=== PATIENT | female | born 1980 | race American Indian/Alaskan Native ===

== ENCOUNTER 2017-04-07 02:41 | Emergency (ER) | payer MEDICAID ==
[2017-04-07 02:58] VITALS: BP 124/74
--- NOTE | 2017-04-07 04:51 | XRay Report ---
FINAL REPORT PROCEDURE: XR SPINE CERVICAL 2-3V TECHNIQUE: Cervical spine radiographs, AP and lateral projections. CPT 33361 HISTORY: neck pain COMPARISON: No prior studies are available for comparison. FINDINGS: Prevertebral soft tissues: Normal. Alignment: Normal. Vertebral body heights/Disk spaces: There is mild loss of disc height at C5-C6 and C6-C7.. Fracture(s): None. Facets: Normal. Bone mineralization: Normal. IMPRESSION: There are no fractures or malalignments. There is degenerative disc change at C5-C6 and C6-C7. Prevertebral soft tissues are normal in thickness.
[2017-04-07] MEDS ORDERED: TORADOL IM ONE (04:55)
--- NOTE | 2017-04-07 04:55 | Emergency Department Report ---
HPI - General Chief Complaint: Neck Pain/Injury Time Seen by Provider: 04/07/17 04:13 - HPI HPI: Patient is a 37-year-old female with no prior medical history who presents to ED complaining of right shoulder back pain 1 week. Patient states pain is burning tingling in nature. Patient describes pain as localized to the right shoulder that radiates down her arm. Patient denies any injuries or trauma to the shoulder. Patient states she had no trauma. She denies fever/chills/nausea /vomiting/abdominal pain/chest pain/shortness of breath ED Past Medical Hx - Past Medical History Hx Arthritis: Yes (Rheumatoid) Additional medical history: club foot, scoliosis - Surgical History Additional Surgical History: foot and back surgery - Social History Smoking Status: Current Every Day Smoker Substance Use Type: None - Medications Home Medications: Home Medications Medication Instructions Recorded Confirmed Last Taken Type Albuterol Sulfate [Ventolin HFA] 2 puff IH Q4H PRN #1 hfa.aer.ad 07/31/13 Unknown Rx Azithromycin [Zithromax Z-NANCY] 250 mg PO DAILY #6 tablet 07/31/13 Unknown Rx Guaifenesin/Codeine Phosphate 5 ml PO Q6H PRN #8 oz 07/31/13 Unknown Rx [Cheratussin AC Syrup] Ondansetron [Zofran Odt] 4 mg PO Q6H PRN #10 tab.rapdis 07/31/13 Unknown Rx Acetaminophen/Codeine [Tylenol 1 tab PO Q6H PRN #10 tab 04/07/17 Unknown Rx /Codeine # 3 tab] Cyclobenzaprine [Flexeril] 10 mg PO QHS PRN #20 tablet 04/07/17 Unknown Rx Naproxen [Naprosyn] 500 mg PO BID #30 tablet 04/07/17 Unknown Rx ED Review of Systems ROS: Stated complaint: RIGHT ARM,SHOULDER,NECK,BACK PAIN Other details as noted in HPI Constitutional: denies: chills, fever Eyes: denies: eye pain, eye discharge, vision change ENT: denies: ear pain, throat pain Respiratory: denies: cough, shortness of breath, wheezing Cardiovascular: denies: chest pain, palpitations Endocrine: no symptoms reported Gastrointestinal: denies: abdominal pain, nausea, diarrhea Genitourinary: denies: urgency, dysuria, discharge Musculoskeletal: myalgia. denies: back pain, joint swelling, arthralgia Skin: denies: rash, lesions, pruritus Neurological: denies: headache, weakness, paresthesias Psychiatric: denies: anxiety, depression Hematological/Lymphatic: denies: easy bleeding, easy bruising Physical Exam - Physical Exam Vital Signs: Vital Signs 04/07/17 02:54 Temperature 98.4 F Pulse Rate 72 Respiratory 18 Rate Blood Pressure 124/74 O2 Sat by Pulse 100 Oximetry Physical Exam: GENERAL: Alert and oriented x3, no apparent distress, Normal Gait, atraumatic. HEAD: Head is normocephalic and a-traumatic. NECK: Supple. Non edematous, No lymphadenopathy or thyromegaly. No C-spine tenderness LUNGS: Symetrical with respiration, No wheezing, no rales or crackles, CTAB. HEART: S1, S2 present, regular rate and rhythm without murmur, no rubs, no gallops. Non tender to palpation BACK: Full range of motion, no spinal tenderness, nontender to palpation. EXTREMITIES/MUSCULOSKELETAL: No cyanosis, clubbing, rash, lesions or edema. Full ROM bilaterally. UE/LE Pulses 2+ bilaterally. UE 5+ strength bilaterally, right trapezius muscles tended to palpation. No bruising, no swelling, no joint deformity seen. NEUROLOGIC: The patient is cooperative with no focal neurologic deficits. Normal speech. Normal sensation in bilateral upper and lower extremities, No loss of sensation, SKIN: Warm and dry, No lesions, No ulceration or induration present. ED Course Vital Signs 04/07/17 02:54 Temperature 98.4 F Pulse Rate 72 Respiratory 18 Rate Blood Pressure 124/74 O2 Sat by Pulse 100 Oximetry ED Medical Decision Making - Radiology Data Radiology results: report reviewed, image reviewed FINDINGS: Prevertebral soft tissues: Normal. Alignment: Normal. Vertebral body heights/Disk spaces: There is mild loss of disc height at C5-C6 and C6-C7.. Fracture(s): None. Facets: Normal. Bone mineralization: Normal. IMPRESSION: There are no fractures or malalignments. There is degenerative disc change at C5-C6 and C6-C7. Prevertebral soft tissues are normal in thickness. Transcribed By: CO Dictated By: LIVAN FERGUSON MD Electronically Authenticated By: LIVAN FERGUSON MD Signed Date/Time: 04/07/1749 FINAL REPORT PROCEDURE: XR SHOULDER 2+V RT TECHNIQUE: Right shoulder radiographs including AP views in internal and external rotation and abduction. CPT 05041 HISTORY: pain R shoulder COMPARISON: No prior studies are available for comparison. FINDINGS: Fracture (s) and/or Dislocation(s): None . Joint space(s): Normal . Soft tissues: Normal . Bone mineralization: Normal . Foreign bodies: None . IMPRESSION: Normal Examination Transcribed By: CO Dictated By: LIVAN FERGUSON MD Electronically Authenticated By: LIVAN FERGUSON MD Signed Date/Time: 04/07/1753 - Medical Decision Making 36-year-old female presents to ED with right shoulder pain ED course: Patient received Toradol and prednisone in ED. Cervical CT, showed x-ray ordered. No acute findings. I discussed his findings with the patient. Vital signs are normal patient is in no acute distress Discussed with patient follow-up with primary care physician. Discussed the patient and take medications as prescribed. Patient has no neurological deficit. Patient is alert and oriented 3 and understands all instructions given. Discussed drowsiness effect of Flexeril makes her drowsy and not to operate machinery while taking flexeril Critical care attestation.: If time is entered above; I have spent that time in minutes in the direct care of this critically ill patient, excluding procedure time. ED Disposition Clinical Impression: Cervical radiculopathy Shoulder pain, right Qualifiers: Chronicity: chronic Qualified Code(s): M25.511 - Pain in right shoulder; G89.29 - Other chronic pain; G89.29 - Other chronic pain Disposition: - TO HOME OR SELFCARE Is pt being admited?: No Does the pt Need Aspirin: No Condition: Stable Instructions: Arthralgia (ED), Tendinitis (ED), Cervical Radiculopathy (ED), Heat Pack Application (ED) Additional Instructions: Make sure to follow up with the primary care physician as discussed. Take all your medications as you've been prescribed. If you have any worsening symptoms or develop new symptoms please return to ED immediately. Prescriptions: Cyclobenzaprine [Flexeril] 10 mg PO QHS PRN #20 tablet PRN Reason: Muscle Spasm Acetaminophen/Codeine [Tylenol /Codeine # 3 tab] 1 tab PO Q6H PRN #10 tab PRN Reason: Pain Naproxen [Naprosyn] 500 mg PO BID #30 tablet Referrals: LETI MAC MD [Primary Care Provider] - 3-5 Days JAYSHREE VEGA MD [Staff Physician] - 3-5 Days [facility] [Outside] - 3-5 Days [facility] [Outside] - 3-5 Days Forms: Work/School Release Form(ED) Time of Disposition: 05:20
[2017-04-07] MEDS ORDERED: DELTASONE PO ONE (04:57)
[2017-04-07] MEDS ORDERED: TORADOL ONE (05:08)
== END 2017-04-07 05:31 | disposition home or self-care (01) ==
LOC: ED 02:41
DX: M54.12 Radiculopathy, cervical region (principal); M06.9 Rheumatoid arthritis, unspecified; F17.200 Nicotine dependence, unspecified, uncomplicated; M25.511 Pain in right shoulder; G89.29 Other chronic pain
CPT/HCPCS: 72040; 73030; 96372; 99283; J1885; J7512

== ENCOUNTER 2018-03-18 11:02 | Emergency (ER) | payer MEDICAID ==
[2018-03-18] MEDS ORDERED: SOLU-Medrol IV ONE (11:25)
[2018-03-18] MEDS ORDERED: BENADRYL IV ONE (11:25)
[2018-03-18] MEDS ORDERED: PEPCID IV ONE (11:25)
--- NOTE | 2018-03-18 11:27 | Emergency Department Report ---
ED Allergic Reaction HPI - General Chief complaint: Allergic Reaction Stated complaint: ALLERGIC REACTION Time Seen by Provider: 03/18/18 11:17 Source: patient Mode of arrival: Ambulatory Limitations: No Limitations - History of Present Illness Initial Comments: 38-year-old female presents to ED with complaint of allergic reaction. The patient has past history of shrimp allergy, reports the patient last night and felt fine, so she decided to eat some this morning also. Patient states she began having swelling around her eyes and facial burning and itching. Denies shortness of breath or wheezing, or sensation of throat closing. Also denies rash. MD Complaint: allergic reaction -: This morning Exposure: food Symptoms: itching, facial swelling. denies: lip swelling, difficulty swallowing, difficulty breathing, orolingual swelling, hoarseness Severity: mild Treatment Prior to Arrival: none - Related Data Previous Rx's Medication Instructions Recorded Last Taken Type Albuterol Sulfate [Ventolin HFA] 2 puff IH Q4H PRN #1 hfa.aer.ad 07/31/13 Unknown Rx Azithromycin [Zithromax Z-NANCY] 250 mg PO DAILY #6 tablet 07/31/13 Unknown Rx Guaifenesin/Codeine Phosphate 5 ml PO Q6H PRN #8 oz 07/31/13 Unknown Rx [Cheratussin AC Syrup] Ondansetron [Zofran Odt] 4 mg PO Q6H PRN #10 tab.rapdis 07/31/13 Unknown Rx Acetaminophen/Codeine [Tylenol 1 tab PO Q6H PRN #10 tab 04/07/17 Unknown Rx /Codeine # 3 tab] Cyclobenzaprine [Flexeril] 10 mg PO QHS PRN #20 tablet 04/07/17 Unknown Rx Naproxen [Naprosyn] 500 mg PO BID #30 tablet 04/07/17 Unknown Rx HYDROcodone/APAP 5-325 [[place] 1 each PO Q4HR PRN #12 tablet 02/18/18 Unknown Rx 5/325] Ibuprofen [Motrin] 600 mg PO Q8H PRN #20 tablet 02/18/18 Unknown Rx predniSONE [Prednisone] 50 mg PO DAILY #5 tablet 03/18/18 Unknown Rx Allergies Allergy/AdvReac Type Severity Reaction Status Date / Time shrimp Allergy Angioedema Verified 03/18/18 11:11 ED Review of Systems ROS: Stated complaint: ALLERGIC REACTION Other details as noted in HPI Comment: All other systems reviewed and negative Constitutional: denies: chills, fever Respiratory: denies: shortness of breath, wheezing Cardiovascular: denies: chest pain Gastrointestinal: denies: nausea, vomiting Skin: denies: rash ED Past Medical Hx - Past Medical History Previous Medical History?: Yes Hx Arthritis: Yes (Rheumatoid) Additional medical history: club foot, scoliosis - Surgical History Past Surgical History?: Yes Additional Surgical History: foot and back surgery - Social History Smoking Status: Current Every Day Smoker Substance Use Type: None - Medications Home Medications: Home Medications Medication Instructions Recorded Confirmed Last Taken Type Albuterol Sulfate [Ventolin HFA] 2 puff IH Q4H PRN #1 hfa.aer.ad 07/31/13 Unknown Rx Azithromycin [Zithromax Z-NANCY] 250 mg PO DAILY #6 tablet 07/31/13 Unknown Rx Guaifenesin/Codeine Phosphate 5 ml PO Q6H PRN #8 oz 07/31/13 Unknown Rx [Cheratussin AC Syrup] Ondansetron [Zofran Odt] 4 mg PO Q6H PRN #10 tab.rapdis 07/31/13 Unknown Rx Acetaminophen/Codeine [Tylenol 1 tab PO Q6H PRN #10 tab 04/07/17 Unknown Rx /Codeine # 3 tab] Cyclobenzaprine [Flexeril] 10 mg PO QHS PRN #20 tablet 04/07/17 Unknown Rx Naproxen [Naprosyn] 500 mg PO BID #30 tablet 04/07/17 Unknown Rx HYDROcodone/APAP 5-325 [[place] 1 each PO Q4HR PRN #12 tablet 02/18/18 Unknown Rx 5/325] Ibuprofen [Motrin] 600 mg PO Q8H PRN #20 tablet 02/18/18 Unknown Rx predniSONE [Prednisone] 50 mg PO DAILY #5 tablet 03/18/18 Unknown Rx ED Physical Exam - General Limitations: No Limitations General appearance: alert, in no apparent distress - Head Head exam: Present: atraumatic, normocephalic - Eye Eye exam: Present: periorbital swelling - ENT ENT exam: Present: normal exam, normal orophraynx, mucous membranes moist - Neck Neck exam: Present: normal inspection - Respiratory Respiratory exam: Present: normal lung sounds bilaterally. Absent: respiratory distress, wheezes, stridor - Cardiovascular Cardiovascular Exam: Present: regular rate, normal rhythm - GI/Abdominal GI/Abdominal exam: Present: soft. Absent: distended - Extremities Exam Extremities exam: Present: normal inspection - Neurological Exam Neurological exam: Present: alert, oriented X3 - Psychiatric Psychiatric exam: Present: normal affect, normal mood - Skin Skin exam: Present: warm, dry, intact, normal color. Absent: rash ED Course Vital Signs 03/18/18 03/18/18 03/18/18 11:08 11:24 11:31 Temperature 98.3 F Pulse Rate 68 Respiratory 18 Rate Blood Pressure 113/58 106/66 O2 Sat by Pulse 100 100 99 Oximetry 03/18/18 03/18/18 03/18/18 11:45 12:00 12:15 Temperature Pulse Rate Respiratory Rate Blood Pressure 106/66 109/62 109/62 O2 Sat by Pulse 99 99 98 Oximetry ED Medical Decision Making - Medical Decision Making Patient given Solu-Medrol, Benadryl, Pepcid for allergic reaction. Patient has improvement and periorbital edema. Airway is stable, no respiratory distress. Vital signs normal. Will discharge with prednisone. Patient advised to not eat seafood anymore. Return precautions given, pavel discharge at this time. - Differential Diagnosis allergic rxn Critical care attestation.: If time is entered above; I have spent that time in minutes in the direct care of this critically ill patient, excluding procedure time. ED Disposition Clinical Impression: Allergic reaction Disposition: DC-01 TO HOME OR SELFCARE Is pt being admited?: No Condition: Stable Instructions: Food Allergy (ED) Prescriptions: predniSONE [Prednisone] 50 mg PO DAILY #5 tablet Referrals: PRIMARY CARE, [Primary Care Provider] - 3-5 Days [facility] [Provider Group] - 3-5 Days Time of Disposition: 13:00
[2018-03-18 12:32] VITALS: BP 109/62
== END 2018-03-18 13:14 | disposition home or self-care (01) ==
LOC: ED 11:02
DX: T78.40XA Allergy, unspecified, initial encounter (principal); M19.90 Unspecified osteoarthritis, unspecified site; F17.200 Nicotine dependence, unspecified, uncomplicated; Z91.013 Allergy to seafood; X58.XXXA Exposure to other specified factors, initial encounter
CPT/HCPCS: 96374; 96375; 99282; J1200; J2930

== ENCOUNTER 2020-11-11 05:49 | Emergency (ER) | payer MEDICAID ==
[2020-11-11 05:55] VITALS: BP 129/91
[2020-11-11] MEDS ORDERED: IBUPROFEN 800 MG TAB PO ONE (07:51)
--- NOTE | 2020-11-11 07:52 | Emergency Department Report ---
ED ENT HPI - General Chief complaint: Dental/Oral Stated complaint: TOOTHACHE Time Seen by Provider: 11/11/20 07:46 Source: patient Mode of arrival: Stretcher Limitations: No Limitations - History of Present Illness Initial comments: The patient was evaluated in the emergency department for symptoms described in the history of present illness. He/she was evaluated in the context of the global COVID-19 pandemic, which necessitated consideration that the patient might be at risk for infection with the virus that causes COVID-19. Institutional protocols and algorithms that pertain to the evaluation of patients at risk for COVID-19 are in a state of rapid change based on information released by regulatory bodies including the CDC and federal and [facility] organizations. These policies and algorithms were followed during the patient's care in the emergency department. Please note that these policies, procedures and recommendations changed on a rapid basis. 40-year-old -[place] female presents to the emergency room complaining of left upper jaw pain and swelling. Patient states that the tooth had broken off and he says it remains in the gum. She states that for the last 2 days she has been in severe pain for hjke-vel-keavitd medication is not improving. Patient is aware that she has some bad teeth. She states she tried to make a appointment with her primary dentist and they had close down secondary to Covid pandemic. Patient comes seeking treatment. MD complaint: tooth pain Onset/Timin -: days(s) Severity: severe Severity scale (0 -10): 10 Quality: burning, stabbing, aching, sharp Consistency: constant Improves with: none Worsens with: swallowing, eating Context- Dental: history of dental caries, poor dental care Associated Symptoms: gum swelling, toothache - Related Data Previous Rx's Medication Instructions Recorded Last Taken Type Albuterol Sulfate [Ventolin HFA] 2 puff IH Q4H PRN #1 hfa.aer.ad 07/31/13 Unknown Rx Azithromycin [Zithromax Z-NANCY] 250 mg PO DAILY #6 tablet 07/31/13 Unknown Rx Guaifenesin/Codeine Phosphate 5 ml PO Q6H PRN #8 oz 07/31/13 Unknown Rx [Cheratussin AC Syrup] Ondansetron [Zofran Odt] 4 mg PO Q6H PRN #10 tab.rapdis 07/31/13 Unknown Rx Acetaminophen/Codeine [Tylenol 1 tab PO Q6H PRN #10 tab 04/07/17 Unknown Rx /Codeine # 3 tab] Cyclobenzaprine [Flexeril] 10 mg PO QHS PRN #20 tablet 04/07/17 Unknown Rx Naproxen [Naprosyn] 500 mg PO BID #30 tablet 04/07/17 Unknown Rx HYDROcodone/APAP 5-325 [[place] 1 each PO Q4HR PRN #12 tablet 02/18/18 Unknown Rx 5/325] Ibuprofen [Motrin] 600 mg PO Q8H PRN #20 tablet 02/18/18 Unknown Rx predniSONE [Prednisone] 50 mg PO DAILY #5 tablet 03/18/18 Unknown Rx Amoxicillin/K Clav Tab [Augmentin 1 tab PO Q12HR 10 Days #20 tab 11/11/20 Unknown Rx 875 mg] Ibuprofen [Motrin 800 MG tab] 800 mg PO Q8HR PRN #30 tablet 11/11/20 Unknown Rx traMADoL [Ultram 50 MG tab] 50 mg PO Q6HR PRN #12 tablet 11/11/20 Unknown Rx Allergies Allergy/AdvReac Type Severity Reaction Status Date / Time shrimp Allergy Angioedema Verified 03/18/18 11:11 ED Dental HPI - General Chief complaint: Dental/Oral Stated complaint: TOOTHACHE Time Seen by Provider: 11/11/20 07:46 Source: patient Mode of arrival: Stretcher Limitations: No Limitations - Related Data Previous Rx's Medication Instructions Recorded Last Taken Type Albuterol Sulfate [Ventolin HFA] 2 puff IH Q4H PRN #1 hfa.aer.ad 07/31/13 Unknown Rx Azithromycin [Zithromax Z-NANCY] 250 mg PO DAILY #6 tablet 07/31/13 Unknown Rx Guaifenesin/Codeine Phosphate 5 ml PO Q6H PRN #8 oz 07/31/13 Unknown Rx [Cheratussin AC Syrup] Ondansetron [Zofran Odt] 4 mg PO Q6H PRN #10 tab.rapdis 07/31/13 Unknown Rx Acetaminophen/Codeine [Tylenol 1 tab PO Q6H PRN #10 tab 04/07/17 Unknown Rx /Codeine # 3 tab] Cyclobenzaprine [Flexeril] 10 mg PO QHS PRN #20 tablet 04/07/17 Unknown Rx Naproxen [Naprosyn] 500 mg PO BID #30 tablet 04/07/17 Unknown Rx HYDROcodone/APAP 5-325 [[place] 1 each PO Q4HR PRN #12 tablet 02/18/18 Unknown Rx 5/325] Ibuprofen [Motrin] 600 mg PO Q8H PRN #20 tablet 02/18/18 Unknown Rx predniSONE [Prednisone] 50 mg PO DAILY #5 tablet 03/18/18 Unknown Rx Amoxicillin/K Clav Tab [Augmentin 1 tab PO Q12HR 10 Days #20 tab 11/11/20 Unknown Rx 875 mg] Ibuprofen [Motrin 800 MG tab] 800 mg PO Q8HR PRN #30 tablet 11/11/20 Unknown Rx traMADoL [Ultram 50 MG tab] 50 mg PO Q6HR PRN #12 tablet 11/11/20 Unknown Rx Allergies Allergy/AdvReac Type Severity Reaction Status Date / Time shrimp Allergy Angioedema Verified 03/18/18 11:11 ED Review of Systems ROS: Stated complaint: TOOTHACHE Other details as noted in HPI Comment: All other systems reviewed and negative ED Past Medical Hx - Past Medical History Previous Medical History?: Yes Hx Arthritis: Yes (Rheumatoid) Additional medical history: club foot, scoliosis - Surgical History Past Surgical History?: Yes Additional Surgical History: foot and back surgery - Social History Smoking Status: Current Every Day Smoker Substance Use Type: None - Medications Home Medications: Home Medications Medication Instructions Recorded Confirmed Last Taken Type Albuterol Sulfate [Ventolin HFA] 2 puff IH Q4H PRN #1 hfa.aer.ad 07/31/13 Unknown Rx Azithromycin [Zithromax Z-NANCY] 250 mg PO DAILY #6 tablet 07/31/13 Unknown Rx Guaifenesin/Codeine Phosphate 5 ml PO Q6H PRN #8 oz 07/31/13 Unknown Rx [Cheratussin AC Syrup] Ondansetron [Zofran Odt] 4 mg PO Q6H PRN #10 tab.rapdis 07/31/13 Unknown Rx Acetaminophen/Codeine [Tylenol 1 tab PO Q6H PRN #10 tab 04/07/17 Unknown Rx /Codeine # 3 tab] Cyclobenzaprine [Flexeril] 10 mg PO QHS PRN #20 tablet 04/07/17 Unknown Rx Naproxen [Naprosyn] 500 mg PO BID #30 tablet 04/07/17 Unknown Rx HYDROcodone/APAP 5-325 [[place] 1 each PO Q4HR PRN #12 tablet 02/18/18 Unknown Rx 5/325] Ibuprofen [Motrin] 600 mg PO Q8H PRN #20 tablet 02/18/18 Unknown Rx predniSONE [Prednisone] 50 mg PO DAILY #5 tablet 03/18/18 Unknown Rx Amoxicillin/K Clav Tab [Augmentin 1 tab PO Q12HR 10 Days #20 tab 11/11/20 Unknown Rx 875 mg] Ibuprofen [Motrin 800 MG tab] 800 mg PO Q8HR PRN #30 tablet 11/11/20 Unknown Rx traMADoL [Ultram 50 MG tab] 50 mg PO Q6HR PRN #12 tablet 11/11/20 Unknown Rx ED Physical Exam - General Limitations: No Limitations General appearance: alert, in no apparent distress - Head Head exam: Present: atraumatic, normocephalic - Eye Eye exam: Present: normal appearance - Expanded ENT Exam Expanded Teeth exam: Present: dental caries, fractured tooth #, dental tenderness #, gingival enlargement - Neck Neck exam: Present: normal inspection, full ROM - Respiratory Respiratory exam: Absent: accessory muscle use - Cardiovascular Cardiovascular Exam: Present: regular rate - Neurological Exam Neurological exam: Present: alert, oriented X3, normal gait - Psychiatric Psychiatric exam: Present: normal affect, normal mood - Skin Skin exam: Present: warm, dry, intact, normal color. Absent: rash ED Course Vital Signs 11/11/20 05:52 Temperature 99.6 F Pulse Rate 84 Respiratory 18 Rate Blood Pressure 129/91 O2 Sat by Pulse 100 Oximetry ED Medical Decision Making - Medical Decision Making 40-year-old -[place] female presents to the emergency room complaining of left upper jaw pain and swelling. Patient states that the tooth had broken off and he says it remains in the gum. She states that for the last 2 days she has been in severe pain for ewda-sau-sritcve medication is not improving. Patient is aware that she has some bad teeth. She states she tried to make a appointment with her primary dentist and they had close down secondary to Covid pandemic. Patient comes seeking treatment. Patient is a severe pain where she is tearful. Will give ibuprofen 800 mg and [place] 7.5 while she is in the ER. Patient be discharged home on Augmentin 875 p.o. twice daily for 10 days tramadol and ibuprofen for pain. Patient be referred to community resource dentist. Critical care attestation.: If time is entered above; I have spent that time in minutes in the direct care of this critically ill patient, excluding procedure time. ED Disposition Clinical Impression: Dental abscess Disposition: HOME / SELF CARE / HOMELESS Is pt being admited?: No Does the pt Need Aspirin: No Condition: Stable Instructions: Dental Abscess, [id number] Additional Instructions: Complete antibiotics as prescribed. Pain medication as needed. Be aware that tramadol can cause some sedation to do not operate heavy machinery. Be sure to eat prior to taking medications. Prescriptions: Amoxicillin/K Clav Tab [Augmentin 875 mg] 1 tab PO Q12HR 10 Days #20 tab Ibuprofen [Motrin 800 MG tab] 800 mg PO Q8HR PRN #30 tablet PRN Reason: Pain , Severe (7-10) traMADoL [Ultram 50 MG tab] 50 mg PO Q6HR PRN #12 tablet PRN Reason: Pain Referrals: [facility] [Outside] - 3-5 Days [facility] [Outside] - 3-5 Days [facility] [Outside] - 3-5 Days Forms: Work/School Release Form(ED) Time of Disposition: 08:00
[2020-11-11] MEDS ORDERED: HYDROcodone/ACETAMINOPHEN 7.5-325MG TAB PO ONE (07:56)
== END 2020-11-11 08:19 | disposition home or self-care (01) ==
LOC: ED 05:49
DX: K04.7 Periapical abscess without sinus (principal); M19.90 Unspecified osteoarthritis, unspecified site; F17.200 Nicotine dependence, unspecified, uncomplicated; Z98.890 Other specified postprocedural states; Z91.013 Allergy to seafood; Z79.899 Other long term (current) drug therapy
CPT/HCPCS: 99283

== ENCOUNTER 2020-12-25 22:32 | Emergency (ER) | payer MEDICAID ==
[2020-12-25 22:53] VITALS: BP 109/62
--- NOTE | 2020-12-26 00:04 | XRay Report ---
LEFT KNEE 3 VIEW(S) INDICATION / CLINICAL INFORMATION: pain COMPARISON: None available. FINDINGS: BONES / JOINT(S): No acute fracture or subluxation. 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 SOFT TISSUES: No significant abnormality. ADDITIONAL FINDINGS: None. Signer Name: Liban Will DO Signed: 12/25/2020 11:59 PM Workstation Name: [id number]
--- NOTE | 2020-12-26 00:56 | Emergency Department Report ---
ED Extremity Problem HPI - General Chief complaint: Extremity Injury, Lower Stated complaint: R ANKLE/L KNEE PAIN Time Seen by Provider: 12/25/20 23:02 Source: patient Mode of arrival: Ambulatory Limitations: No Limitations - History of Present Illness Initial comments: 40-year-old female presents to ED with right ankle and left knee pain. Patient reports chronic right ankle pain. 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 Patient reports pain off and on throughout her life in the right ankle. She is also reporting some left knee pain x1 week. She denies any injury. States pain is worse when laying in bed at night. She denies pain with flexion or extension, walking, or standing. Patient states she has taken reda-xuj-zpitahl Tylenol and NSAIDs without relief. Patient reports history of rheumatoid arthritis. MD Complaint: extremity pain -: week(s) (1) Location: left, right, lower extremity History of Same: Yes -: Yes arthralgia Quality: aching Consistency: constant Improves with: nothing Worsens with: other Associated Symptoms: denies other symptoms. denies: chest pain, shortness of breath, fever - Related Data Previous Rx's Medication Instructions Recorded Last Taken Type Albuterol Sulfate [Ventolin HFA] 2 puff IH Q4H PRN #1 hfa.aer.ad 07/31/13 Unknown Rx Azithromycin [Zithromax Z-NANCY] 250 mg PO DAILY #6 tablet 07/31/13 Unknown Rx Guaifenesin/Codeine Phosphate 5 ml PO Q6H PRN #8 oz 07/31/13 Unknown Rx [Cheratussin AC Syrup] Ondansetron [Zofran Odt] 4 mg PO Q6H PRN #10 tab.rapdis 07/31/13 Unknown Rx Acetaminophen/Codeine [Tylenol 1 tab PO Q6H PRN #10 tab 04/07/17 Unknown Rx /Codeine # 3 tab] Cyclobenzaprine [Flexeril] 10 mg PO QHS PRN #20 tablet 04/07/17 Unknown Rx Naproxen [Naprosyn] 500 mg PO BID #30 tablet 04/07/17 Unknown Rx HYDROcodone/APAP 5-325 [[place] 1 each PO Q4HR PRN #12 tablet 02/18/18 Unknown Rx 5/325] Ibuprofen [Motrin] 600 mg PO Q8H PRN #20 tablet 02/18/18 Unknown Rx predniSONE [Prednisone] 50 mg PO DAILY #5 tablet 03/18/18 Unknown Rx Amoxicillin/K Clav Tab [Augmentin 1 tab PO Q12HR 10 Days #20 tab 11/11/20 Unknown Rx 875 mg] Ibuprofen [Motrin 800 MG tab] 800 mg PO Q8HR PRN #30 tablet 11/11/20 Unknown Rx traMADoL [Ultram 50 MG tab] 50 mg PO Q6HR PRN #12 tablet 11/11/20 Unknown Rx Naproxen [Naprosyn] 500 mg PO BID #20 tablet 12/26/20 Unknown Rx traMADoL [Ultram] 50 mg PO Q6HR PRN #7 tablet 12/26/20 Unknown Rx Allergies Allergy/AdvReac Type Severity Reaction Status Date / Time shrimp Allergy Angioedema Verified 03/18/18 11:11 ED Review of Systems ROS: Stated complaint: R ANKLE/L KNEE PAIN Other details as noted in HPI Comment: All other systems reviewed and negative Constitutional: denies: fever Musculoskeletal: arthralgia ED Past Medical Hx - Past Medical History Hx Arthritis: Yes (Rheumatoid) Additional medical history: club foot, scoliosis - Surgical History Additional Surgical History: foot and back surgery - Social History Smoking Status: Current Every Day Smoker Substance Use Type: None - Medications Home Medications: Home Medications Medication Instructions Recorded Confirmed Last Taken Type Albuterol Sulfate [Ventolin HFA] 2 puff IH Q4H PRN #1 hfa.aer.ad 07/31/13 Unknown Rx Azithromycin [Zithromax Z-NANCY] 250 mg PO DAILY #6 tablet 07/31/13 Unknown Rx Guaifenesin/Codeine Phosphate 5 ml PO Q6H PRN #8 oz 07/31/13 Unknown Rx [Cheratussin AC Syrup] Ondansetron [Zofran Odt] 4 mg PO Q6H PRN #10 tab.rapdis 07/31/13 Unknown Rx Acetaminophen/Codeine [Tylenol 1 tab PO Q6H PRN #10 tab 04/07/17 Unknown Rx /Codeine # 3 tab] Cyclobenzaprine [Flexeril] 10 mg PO QHS PRN #20 tablet 04/07/17 Unknown Rx Naproxen [Naprosyn] 500 mg PO BID #30 tablet 04/07/17 Unknown Rx HYDROcodone/APAP 5-325 [[place] 1 each PO Q4HR PRN #12 tablet 02/18/18 Unknown Rx 5/325] Ibuprofen [Motrin] 600 mg PO Q8H PRN #20 tablet 02/18/18 Unknown Rx predniSONE [Prednisone] 50 mg PO DAILY #5 tablet 03/18/18 Unknown Rx Amoxicillin/K Clav Tab [Augmentin 1 tab PO Q12HR 10 Days #20 tab 11/11/20 U nknown Rx 875 mg] Ibuprofen [Motrin 800 MG tab] 800 mg PO Q8HR PRN #30 tablet 11/11/20 Unknown Rx traMADoL [Ultram 50 MG tab] 50 mg PO Q6HR PRN #12 tablet 11/11/20 Unknown Rx Naproxen [Naprosyn] 500 mg PO BID #20 tablet 12/26/20 Unknown Rx traMADoL [Ultram] 50 mg PO Q6HR PRN #7 tablet 12/26/20 Unknown Rx ED Physical Exam - General Limitations: No Limitations General appearance: alert, in no apparent distress - Head Head exam: Present: atraumatic, normocephalic - Eye Eye exam: Present: normal appearance, EOMI - ENT ENT exam: Present: mucous membranes moist - Neck Neck exam: Present: normal inspection - Respiratory Respiratory exam: Present: normal lung sounds bilaterally. Absent: respiratory distress - Cardiovascular Cardiovascular Exam: Present: regular rate, normal rhythm - GI/Abdominal GI/Abdominal exam: Absent: distended - Extremities Exam Extremities exam: Present: other (Tenderness to right ankle; slight tenderness to anterior left knee, range of motion intact, no erythema or swelling to the knee) - Neurological Exam Neurological exam: Present: alert, oriented X3. Absent: motor sensory deficit - Psychiatric Psychiatric exam: Present: normal affect, normal mood - Skin Skin exam: Present: warm, dry, intact, normal color ED Course Vital Signs 12/25/20 22:50 Temperature 98.0 F Pulse Rate 78 Respiratory 17 Rate Blood Pressure 109/62 O2 Sat by Pulse 98 Oximetry ED Medical Decision Making - Radiology Data Radiology results: report reviewed, image reviewed Critical care attestation.: If time is entered above; I have spent that time in minutes in the direct care of this critically ill patient, excluding procedure time. ED Disposition Clinical Impression: Left knee pain, Chronic pain of right ankle Disposition: HOME / SELF CARE / HOMELESS Is pt being admited?: No Condition: Stable Instructions: Acute Knee Pain, Adult Prescriptions: Naproxen [Naprosyn] 500 mg PO BID #20 tablet traMADoL [Ultram] 50 mg PO Q6HR PRN #7 tablet PRN Reason: Pain Referrals: PRIMARY CARE, [Primary Care Provider] - 3-5 Days ANDREI GRIFFIN MD [Staff Physician] - 3-5 Days Time of Disposition: 00:55
== END 2020-12-26 01:48 | disposition home or self-care (01) ==
LOC: ED 22:32
DX: M25.571 Pain in right ankle and joints of right foot (principal); M25.562 Pain in left knee; M06.9 Rheumatoid arthritis, unspecified; M41.9 Scoliosis, unspecified; Q66.89 Other specified congenital deformities of feet; Z98.890 Other specified postprocedural states; F17.200 Nicotine dependence, unspecified, uncomplicated; Z91.013 Allergy to seafood
CPT/HCPCS: 99283

== ENCOUNTER 2021-01-28 12:23 | Emergency (ER) | payer MEDICAID ==
[2021-01-28] MEDS ORDERED: dexAMETHasone 4 MG/ML VIAL IM ONE (12:36)
[2021-01-28] MEDS ORDERED: KETOROLAC 60 MG/2 ML INJ IM ONE (12:36)
[2021-01-28 12:52] VITALS: BP 116/64
--- NOTE | 2021-01-28 12:55 | Emergency Department Report ---
ED Extremity Problem HPI - General Chief complaint: Pain General Stated complaint: BODYACHES Time Seen by Provider: 01/28/21 12:31 Source: patient Mode of arrival: Ambulatory Limitations: No Limitations - History of Present Illness Initial comments: Patient is a 40-year-old female presents emergency room complaints of left knee pain that exacerbated over the last couple weeks. Patient states that she has a history of rheumatoid arthritis and reports that she believes she is having a flare in her knee. She denies any fall or injury. She denies any fever, chills, rashes, numbness, weakness. No allergies to medications. Patient was evaluated in the emergency department in November 29, 2020 for similar symptoms but never followed up with a primary care physician. she denies any history of diabetes or kidney disease. Severity scale (0 -10): 10 - Related Data Previous Rx's Medication Instructions Recorded Last Taken Type Albuterol Sulfate [Ventolin HFA] 2 puff IH Q4H PRN #1 hfa.aer.ad 07/31/13 Unknown Rx Azithromycin [Zithromax Z-NANCY] 250 mg PO DAILY #6 tablet 07/31/13 Unknown Rx Guaifenesin/Codeine Phosphate 5 ml PO Q6H PRN #8 oz 07/31/13 Unknown Rx [Cheratussin AC Syrup] Ondansetron [Zofran Odt] 4 mg PO Q6H PRN #10 tab.rapdis 07/31/13 Unknown Rx Acetaminophen/Codeine [Tylenol 1 tab PO Q6H PRN #10 tab 04/07/17 Unknown Rx /Codeine # 3 tab] Cyclobenzaprine [Flexeril] 10 mg PO QHS PRN #20 tablet 04/07/17 Unknown Rx Naproxen [Naprosyn] 500 mg PO BID #30 tablet 04/07/17 Unknown Rx HYDROcodone/APAP 5-325 [[place] 1 each PO Q4HR PRN #12 tablet 02/18/18 Unknown Rx 5/325] Ibuprofen [Motrin] 600 mg PO Q8H PRN #20 tablet 02/18/18 Unknown Rx predniSONE [Prednisone] 50 mg PO DAILY #5 tablet 03/18/18 Unknown Rx Amoxicillin/K Clav Tab [Augmentin 1 tab PO Q12HR 10 Days #20 tab 11/11/20 Unknown Rx 875 mg] Ibuprofen [Motrin 800 MG tab] 800 mg PO Q8HR PRN #30 tablet 11/11/20 Unknown Rx traMADoL [Ultram 50 MG tab] 50 mg PO Q6HR PRN #12 tablet 11/11/20 Unknown Rx Naproxen [Naprosyn] 500 mg PO BID #20 tablet 12/26/20 Unknown Rx traMADoL [Ultram] 50 mg PO Q6HR PRN #7 tablet 12/26/20 Unknown Rx Meloxicam [Mobic] 7.5 mg PO QDAY #14 tablet 01/28/21 Unknown Rx Menthol/Camphor [[place] 1 applicatio TP BID #18 oint...g. 01/28/21 Unknown Rx Ointment] predniSONE [Deltasone] 40 mg PO QDAY 5 Days #10 tab 01/28/21 Unknown Rx Allergies Allergy/AdvReac Type Severity Reaction Status Date / Time shrimp Allergy Angioedema Verified 03/18/18 11:11 ED Review of Systems ROS: Stated complaint: BODYACHES Other details as noted in HPI Comment: All other systems reviewed and negative ED Past Medical Hx - Past Medical History Hx Arthritis: Yes (Rheumatoid) Additional medical history: club foot, scoliosis - Surgical History Additional Surgical History: foot and back surgery - Social History Smoking Status: Current Every Day Smoker Substance Use Type: None - Medications Home Medications: Home Medications Medication Instructions Recorded Confirmed Last Taken Type Albuterol Sulfate [Ventolin HFA] 2 puff IH Q4H PRN #1 hfa.aer.ad 07/31/13 Unknown Rx Azithromycin [Zithromax Z-NANCY] 250 mg PO DAILY #6 tablet 07/31/13 Unknown Rx Guaifenesin/Codeine Phosphate 5 ml PO Q6H PRN #8 oz 07/31/13 Unknown Rx [Cheratussin AC Syrup] Ondansetron [Zofran Odt] 4 mg PO Q6H PRN #10 tab.rapdis 07/31/13 Unknown Rx Acetaminophen/Codeine [Tylenol 1 tab PO Q6H PRN #10 tab 04/07/17 Unknown Rx /Codeine # 3 tab] Cyclobenzaprine [Flexeril] 10 mg PO QHS PRN #20 tablet 04/07/17 Unknown Rx Naproxen [Naprosyn] 500 mg PO BID #30 tablet 04/07/17 Unknown Rx HYDROcodone/APAP 5-325 [[place] 1 each PO Q4HR PRN #12 tablet 02/18/18 Unknown Rx 5/325] Ibuprofen [Motrin] 600 mg PO Q8H PRN #20 tablet 02/18/18 Unknown Rx predniSONE [Prednisone] 50 mg PO DAILY #5 tablet 03/18/18 Unknown Rx Amoxicillin/K Clav Tab [Augmentin 1 tab PO Q12HR 10 Days #20 tab 11/11/20 Unknown Rx 875 mg] Ibuprofen [Motrin 800 MG tab] 800 mg PO Q8HR PRN #30 tablet 11/11/20 Unknown Rx traMADoL [Ultram 50 MG tab] 50 mg PO Q6HR PRN #12 tablet 11/11/20 Unknown Rx Naproxen [Naprosyn] 500 mg PO BID #20 tablet 12/26/20 Unknown Rx traMADoL [Ultram] 50 mg PO Q6HR PRN #7 tablet 12/26/20 Unknown Rx Meloxicam [Mobic] 7.5 mg PO QDAY #14 tablet 01/28/21 Unknown Rx Menthol/Camphor [[place] 1 applicatio TP BID #18 oint...g. 01/28/21 Unknown Rx Ointment] predniSONE [Deltasone] 40 mg PO QDAY 5 Days #10 tab 01/28/21 Unknown Rx ED Physical Exam - General Limitations: No Limitations General appearance: alert, in no apparent distress - Head Head exam: Present: atraumatic, normocephalic - Eye Eye exam: Present: normal appearance - ENT ENT exam: Present: mucous membranes moist - Extremities Exam Extremities exam: Present: other (ttp to the left anterior knee, FROM of the LLE, no erythema, no increased warmth, no rashes, neurovascularly intact) - Neurological Exam Neurological exam: Present: alert, oriented X3 - Psychiatric Psychiatric exam: Present: normal affect, normal mood - Skin Skin exam: Present: warm, dry, intact ED Course Vital Signs 01/28/21 01/28/21 12:26 12:46 Temperature 98.5 F Pulse Rate 82 Respiratory 20 16 Rate Blood Pressure 116/64 O2 Sat by Pulse 99 Oximetry ED Medical Decision Making - Medical Decision Making Patient is a 40-year-old female presents emergency room complaints of left knee pain that exacerbated over the last couple weeks. Patient states that she has a history of rheumatoid arthritis and reports that she believes she is having a flare in her knee. She denies any fall or injury. She denies any fever, chi lls, rashes, numbness, weakness. No allergies to medications. Patient was evaluated in the emergency department in November 29, 2020 for similar symptoms but never followed up with a primary care physician. she denies any history of diabetes or kidney disease. Vitals are normal. On exam:ttp to the left anterior knee, FROM of the LLE, no erythema, no increased warmth, no rashes, neurovascularly intact. Patient has had no acute trauma. No signs of infection or septic joint. No clinical signs of DVT, no leg edema, no calf pain, negative Homans' sign. Patient given medication while in the emergency department. Discussed the importance of outpatient follow-up with primary care as she will likely need to be referred to a blade filer. Advised patient Please use medication as prescribed. Please follow-up with a primary care physician. Return to emergency room for any new or symptoms. Critical care attestation.: If time is entered above; I have spent that time in minutes in the direct care of this critically ill patient, excluding procedure time. ED Disposition Clinical Impression: Rheumatoid arthritis Qualifiers: Rheumatoid arthritis location: knee Rheumatoid factor presence: unspecified presence Laterality: left Qualified Code(s): M06.9 - Rheumatoid arthritis, unspecified Knee pain Qualifiers: Chronicity: acute Laterality: left Qualified Code(s): M25.562 - Pain in left knee Disposition: 01 HOME / SELF CARE / HOMELESS Is pt being admited?: No Does the pt Need Aspirin: No Condition: Stable Instructions: Joint Pain Additional Instructions: Please use medication as prescribed. Please follow-up with a primary care physician. Return to emergency room for any new or symptoms. Prescriptions: predniSONE [Deltasone] 40 mg PO QDAY 5 Days #10 tab Meloxicam [Mobic] 7.5 mg PO QDAY #14 tablet Menthol/Camphor [[place] Ointment] 1 applicatio TP BID #18 oint...g. Referrals: BRYCE DILLARD MD [Staff Physician] - 3-5 Days [facility] [Provider Group] - 3-5 Days SAPPHIRE MONAHAN MD [Staff Physician] - 3-5 Days HUMZA MANSFIELD MD [Staff Physician] - 3-5 Days Time of Disposition: 12:53 Print Language: SWEDISH
== END 2021-01-28 13:07 | disposition home or self-care (01) ==
LOC: ED 12:23
DX: M06.9 Rheumatoid arthritis, unspecified (principal); M25.562 Pain in left knee; Z91.013 Allergy to seafood; F17.200 Nicotine dependence, unspecified, uncomplicated
CPT/HCPCS: 96372; 99281; J1100; J1885

== ENCOUNTER 2021-05-16 20:46 | Emergency (ER) | payer MEDICAID ==
--- NOTE | 2021-05-16 22:52 | Emergency Department Report ---
ED General Adult HPI - General Chief complaint: Extremity Injury, Lower Stated complaint: ANKLE & LEG PAIN Time Seen by Provider: 05/16/21 22:16 Source: patient Mode of arrival: Ambulatory Limitations: No Limitations - History of Present Illness Initial comments: 41-year-old [place] female born with clubfoot and had surgically corrected as a child presents emergency department complaining of acute onset of chronic recurrent pain which usually resolve with [id number] medication and her primary care provider is medications however she has been out of her medications due to her primary care provider closing of the pandemic time she reports no injury but the pain is dull and throbbing to the dorsum of the right foot Radiation: non-radiation Severity scale (0 -10): 3 Consistency: constant Improves with: none Worsens with: none Associated Symptoms: denies: chest pain, cough, diaphoresis, loss of appetite, malaise, nausea/vomiting, shortness of breath, syncope, weakness - Related Data Previous Rx's Medication Instructions Recorded Last Taken Type Albuterol Sulfate [Ventolin HFA] 2 puff IH Q4H PRN #1 hfa.aer.ad 07/31/13 Unknown Rx Azithromycin [Zithromax Z-NANCY] 250 mg PO DAILY #6 tablet 07/31/13 Unknown Rx Guaifenesin/Codeine Phosphate 5 ml PO Q6H PRN #8 oz 07/31/13 Unknown Rx [Cheratussin AC Syrup] Ondansetron [Zofran Odt] 4 mg PO Q6H PRN #10 tab.rapdis 07/31/13 Unknown Rx Acetaminophen/Codeine [Tylenol 1 tab PO Q6H PRN #10 tab 04/07/17 Unknown Rx /Codeine # 3 tab] Cyclobenzaprine [Flexeril] 10 mg PO QHS PRN #20 tablet 04/07/17 Unknown Rx Naproxen [Naprosyn] 500 mg PO BID #30 tablet 04/07/17 Unknown Rx HYDROcodone/APAP 5-325 [[place] 1 each PO Q4HR PRN #12 tablet 02/18/18 Unknown Rx 5/325] Ibuprofen [Motrin] 600 mg PO Q8H PRN #20 tablet 02/18/18 Unknown Rx predniSONE [Prednisone] 50 mg PO DAILY #5 tablet 03/18/18 Unknown Rx Amoxicillin/K Clav Tab [Augmentin 1 tab PO Q12HR 10 Days #20 tab 11/11/20 Unknown Rx 875 mg] Ibuprofen [Motrin 800 MG tab] 800 mg PO Q8HR PRN #30 tablet 11/11/20 Unknown Rx traMADoL [Ultram 50 MG tab] 50 mg PO Q6HR PRN #12 tablet 11/11/20 Unknown Rx Naproxen [Naprosyn] 500 mg PO BID #20 tablet 12/26/20 Unknown Rx traMADoL [Ultram] 50 mg PO Q6HR PRN #7 tablet 12/26/20 Unknown Rx Meloxicam [Mobic] 7.5 mg PO QDAY #14 tablet 01/28/21 Unknown Rx Menthol/Camphor [[place] 1 applicatio TP BID #18 oint...g. 01/28/21 Unknown Rx Ointment] predniSONE [Deltasone] 40 mg PO QDAY 5 Days #10 tab 01/28/21 Unknown Rx Ketorolac [Toradol] 10 mg PO Q6H PRN #14 05/16/21 Unknown Rx traMADoL [Ultram] 50 mg PO Q4HR PRN #14 tablet 05/16/21 Unknown Rx Allergies Allergy/AdvReac Type Severity Reaction Status Date / Time shrimp Allergy Angioedema Verified 03/18/18 11:11 ED Review of Systems ROS: Stated complaint: ANKLE & LEG PAIN Other details as noted in HPI Comment: All other systems reviewed and negative ED Past Medical Hx - Past Medical History Previous Medical History?: Yes Hx Arthritis: Yes (Rheumatoid) Additional medical history: club foot, scoliosis - Surgical History Past Surgical History?: Yes Additional Surgical History: foot and back surgery - Social History Smoking Status: Current Every Day Smoker Substance Use Type: None - Medications Home Medications: Home Medications Medication Instructions Recorded Confirmed Last Taken Type Albuterol Sulfate [Ventolin HFA] 2 puff IH Q4H PRN #1 hfa.aer.ad 07/31/13 Unknown Rx Azithromycin [Zithromax Z-NANCY] 250 mg PO DAILY #6 tablet 07/31/13 Unknown Rx Guaifenesin/Codeine Phosphate 5 ml PO Q6H PRN #8 oz 07/31/13 Unknown Rx [Cheratussin AC Syrup] Ondansetron [Zofran Odt] 4 mg PO Q6H PRN #10 tab.rapdis 07/31/13 Unknown Rx Acetaminophen/Codeine [Tylenol 1 tab PO Q6H PRN #10 tab 04/07/17 Unknown Rx /Codeine # 3 tab] Cyclobenzaprine [Flexeril] 10 mg PO QHS PRN #20 tablet 04/07/17 Unknown Rx Naproxen [Naprosyn] 500 mg PO BID #30 tablet 04/07/17 Unknown Rx HYDROcodone/APAP 5-325 [[place] 1 each PO Q4HR PRN #12 tablet 02/18/18 Unknown Rx 5/325] Ibuprofen [Motrin] 600 mg PO Q8H PRN #20 tablet 02/18/18 Unknown Rx predniSONE [Prednisone] 50 mg PO DAILY #5 tablet 03/18/18 Unknown Rx Amoxicillin/K Clav Tab [Augmentin 1 tab PO Q12HR 10 Days #20 tab 11/11/20 Unknown Rx 875 mg] Ibuprofen [Motrin 800 MG tab] 800 mg PO Q8HR PRN #30 tablet 11/11/20 Unknown Rx traMADoL [Ultram 50 MG tab] 50 mg PO Q6HR PRN #12 tablet 11/11/20 Unknown Rx Naproxen [Naprosyn] 500 mg PO BID #20 tablet 12/26/20 Unknown Rx traMADoL [Ultram] 50 mg PO Q6HR PRN #7 tablet 12/26/20 Unknown Rx Meloxicam [Mobic] 7.5 mg PO QDAY #14 tablet 01/28/21 Unknown Rx Menthol/Camphor [[place] 1 applicatio TP BID #18 oint...g. 01/28/21 Unknown Rx Ointment] predniSONE [Deltasone] 40 mg PO QDAY 5 Days #10 tab 01/28/21 Unknown Rx Ketorolac [Toradol] 10 mg PO Q6H PRN #14 05/16/21 Unknown Rx traMADoL [Ultram] 50 mg PO Q4HR PRN #14 tablet 05/16/21 Unknown Rx ED Physical Exam - General Limitations: No Limitations General appearance: alert, in no apparent distress - Head Head exam: Present: atraumatic, normocephalic - Eye Eye exam: Present: normal appearance, PERRL, EOMI. Absent: scleral icterus, conjunctival injection Pupils: Present: normal accommodation - ENT ENT exam: Present: normal exam, mucous membranes moist - Neck Neck exam: Present: normal inspection, full ROM - Respiratory Respiratory exam: Present: normal lung sounds bilaterally. Absent: respiratory distress, wheezes, rales, rhonchi, chest wall tenderness, accessory muscle use - Cardiovascular Cardiovascular Exam: Present: regular rate, normal rhythm. Absent: systolic murmur, diastolic murmur, rubs, gallop - GI/Abdominal GI/Abdominal exam: Present: soft, normal bowel sounds - Extremities Exam Extremities exam: Present: normal inspection, tenderness - Expanded Lower Extremity Exam Right Foot/Toe exam: Present: tenderness, swelling. Absent: amputation, puncture wound, tenderness at base of 5th metatarsal 1 - Tenderness at this region 2 - Large callus to this region 3 - Healed surgical scar to this region - Back Exam Back exam: Present: normal inspection. Absent: full ROM, CVA tenderness (R), CVA tenderness (L) - Neurological Exam Neurological exam: Present: alert, oriented X3, CN II-XII intact - Psychiatric Psychiatric exam: Present: normal affect, normal mood. Absent: flat affect, manic, homicidal ideation, suicidal ideation - Skin Skin exam: Present: warm, dry, intact, normal color. Absent: rash, petechiae, abrasion, other ED Course Vital Signs 05/16/21 20:54 Temperature 98.6 F Pulse Rate 92 H Respiratory 16 Rate Blood Pressure 132/70 [Right] O2 Sat by Pulse 99 Oximetry ED Medical Decision Making - Medical Decision Making 41-year-old female [facility] emerge department complaining chronic pain to her clubfoot and seeking analgesic Critical care attestation.: If time is entered above; I have spent that time in minutes in the direct care of this critically ill patient, excluding procedure time. ED Disposition Clinical Impression: Chronic foot pain Disposition: 01 HOME / SELF CARE / HOMELESS Is pt being admited?: No Does the pt Need Aspirin: No Condition: Stable Instructions: Authorized Agent-Controlled Analgesia, Chronic Pain, Adult, Foot Pain Prescriptions: Ketorolac [Toradol] 10 mg PO Q6H PRN #14 PRN Reason: Pain traMADoL [Ultram] 50 mg PO Q4HR PRN #14 tablet PRN Reason: Pain Referrals: BRYCE DILLARD MD [Primary Care Provider] - 3-5 Days
[2021-05-16] MEDS ORDERED: HYDROcodone/ACETAMINOPHEN 5-325 MG TAB PO STA (23:16)
[2021-05-17 00:11] VITALS: BP 119/70
== END 2021-05-17 00:11 | disposition home or self-care (01) ==
LOC: ED 20:46
DX: M79.639 Pain in unspecified forearm (principal); F17.200 Nicotine dependence, unspecified, uncomplicated; Z91.013 Allergy to seafood
CPT/HCPCS: 99282

== ENCOUNTER 2021-06-08 09:55 | Emergency (ER) | payer MEDICAID ==
[2021-06-08] MEDS ORDERED: IPRATROPIUM/ALBUTEROL SULFATE 3 ML AMPUL.NEB IH ONE (10:09)
[2021-06-08] MEDS ORDERED: methylPREDNISolone Sod Succinate 125 MG/2 ML INJ IM ONE (10:09)
--- NOTE | 2021-06-08 10:58 | XRay Report ---
CHEST 2 VIEWS INDICATION / CLINICAL INFORMATION: SOB. Not feeling well/tired. Cough and chills. COMPARISON: None available. FINDINGS: SUPPORT DEVICES: None. HEART / MEDIASTINUM: The heart size and pulmonary vasculature are normal. LUNGS / PLEURA: No significant pulmonary or pleural abnormality. No pneumothorax. ADDITIONAL FINDINGS: There are Tucker rods transfixing the thoracic spine. IMPRESSION: No acute findings. There is no evidence of pneumonia. Signer Name: Baltazar Rivera MD Signed: 06/08/2021 10:54 AM Workstation Name: [id number]
--- NOTE | 2021-06-08 11:00 | Emergency Department Report ---
Minor Respiratory - HPI Chief Complaint: Dyspnea/Respdistress Stated Complaint: DIFFICULTY BREATHING Time Seen by Provider: 06/08/21 10:09 Duration: 3 Days Pain Location: Chest Severity: moderate Minor Respiratory: Yes Sore Throat, Yes Able to Tolerate Fluids, Yes Cough, Yes Shortness of Breath, No Rhinorrhea, No Ear Pain, No Sick Contacts, No Hemoptysis, No Chest Pain, No Fever Other History: Patient is a 41-year-old asthmatic comes to the emergency room short of breath and wheezing this morning. Note that it is the end of May and June and pollen it is at its peak. Patient is using her rescue inhaler with minimal relief. She denies fever or chills. She endorses weakness. She denies a cough. She has had Covid in the past. Vital signs are normal on arrival to the ER. ED Review of Systems ROS: Stated complaint: DIFFICULTY BREATHING Other details as noted in HPI Comment: All other systems reviewed and negative ED Past Medical Hx - Past Medical History Previous Medical History?: Yes Hx Arthritis: Yes (Rheumatoid) Additional medical history: club foot, scoliosis - Surgical History Past Surgical History?: Yes Additional Surgical History: foot and back surgery - Family History Family history: no significant - Social History Smoking Status: Current Every Day Smoker Substance Use Type: None - Medications Home Medications: Home Medications Medication Instructions Recorded Confirmed Last Taken Type ALBUTEROL NEB's [Proventil 0.083% 2.5 mg IH TID PRN #1 box 06/08/21 Unknown Rx NEBS] Cetirizine HCl [ZyrTEC] 10 mg PO DAILY #30 capsule 06/08/21 Unknown Rx Fluticasone [Flonase] 1 spray NS QDAY #1 bottle 06/08/21 Unknown Rx predniSONE [Deltasone] 20 mg PO DAILY #5 tablet 06/08/21 Unknown Rx Minor Respiratory Exam - Exam General: Vital signs noted. No distress. Alert and acting appropriately. HEENT: Yes Moist Mucous Membranes, No Pharyngeal Erythema, No Pharyngeal Exudates, No Rhinorrhea, No Conjuctival Injection, No Frontal Tenderness, No Maxillary Tenderness Ear: Neither TM Bulge, Neither TM Erythema, Neither EAC Pain, Neither EAC Discharge Neck: Yes Supple, No Adenopathy Lungs: Yes Good Air Exchange, Yes Wheezes, No Ronchi, No Stridor, No Cough, No Labored Respirations, No Retractions, No Use of Accessory Muscles, No Other Abnormal Lung Sounds Heart: Yes Regular, No Murmur Abdomen: Yes Normal Bowel Sounds, No Tenderness, No Peritoneal Signs Skin: No Rash, No Edema Neurologic: Alert and oriented, no deficits. Musculoskeletal: Unremarkable. ED Course Vital Signs 06/08/21 06/08/21 09:58 10:31 Temperature 98.7 F Pulse Rate 78 Pulse Rate [ 80 Anterior Bilateral Throughout] Respiratory 16 Rate Respiratory 20 Rate [Anterior Bilateral Throughout] Blood Pressure 125/72 [Left] O2 Sat by Pulse 98 Oximetry ED Medical Decision Making - Radiology Data Radiology results: report reviewed, image reviewed [facility] - Medical Decision Making Vital Signs 06/08/21 06/08/21 09:58 10:31 Temperature 98.7 F Pulse Rate 78 Pulse Rate [ 80 Anterior Bilateral Throughout] Respiratory 16 Rate Respiratory 20 Rate [Anterior Bilateral Throughout] Blood Pressure 125/72 [Left] O2 Sat by Pulse 98 Oximetry Patient given a DuoNeb x2., Solu-Medrol 125 IM x1. X-ray noted to be without infiltrate or suggestion of pneumonia. After DuoNeb patient was noted to be talking on her phone in full sentences in no acute distress. Patient being discharged home with discharge plan of care including diet activity meds and follow-up. She verbalizes understanding of plan of care - Differential Diagnosis asthma ae ro pna Critical care attestation.: If time is entered above; I have spent that time in minutes in the direct care of this critically ill patient, excluding procedure time. ED Disposition Clinical Impression: Asthma, acute Disposition: 01 HOME / SELF CARE / HOMELESS Is pt being admited?: No Does the pt Need Aspirin: No Condition: Stable Instructions: Asthma, Adult, Asthma (ED) Additional Instructions: meds As ordered Avoid the pollen is much as you can Follow-up with PCP in 48 hours to make sure you are improving Prescriptions: predniSONE [Deltasone] 20 mg PO DAILY #5 tablet Fluticasone [Flonase] 1 spray NS QDAY #1 bottle ALBUTEROL NEB's [Proventil 0.083% NEBS] 2.5 mg IH TID PRN #1 box PRN Reason: Wheezing Cetirizine HCl [ZyrTEC] 10 mg PO DAILY #30 capsule Referrals: BRYCE DILLARD MD [Primary Care Provider] - 3-5 Days Time of Disposition: 11:10
[2021-06-08] MEDS ORDERED: ALBUTEROL 2.5 MG/3 ML NEBU IH ONE (11:16)
[2021-06-08 12:26] VITALS: BP 121/72
== END 2021-06-08 12:26 | disposition home or self-care (01) ==
LOC: ED 09:55
DX: J45.901 Unspecified asthma with (acute) exacerbation (principal); F17.200 Nicotine dependence, unspecified, uncomplicated
CPT/HCPCS: 71046; 94640; 96372; 99283; J2930; 94644